=== PATIENT | male | born 1955 | race Caucasian/White ===

== ENCOUNTER 2017-02-14 19:35 | Emergency (ER) | payer MEDICARE ==
[~2017-02-14] VITALS: Ht 180.3 cm; Wt 76.7 kg
[~2017-02-14 19:35] MED LIST: ALPR0.5T6 PO; BUSP10TA PO; BUSP7.5T3 PO; BUTA1CAP30 PO; LOSA25TA5 PO; MORP-52 PO; MORP30TA81 PO; PRIM50TA PO
[2017-02-14 19:37] VITALS: BP 135/89
[2017-02-14] MEDS ORDERED: ONDANSETRON ODT 4 MG PO ONE (21:00)
[2017-02-14] MEDS ORDERED: HYDROmorphone 1 MG/ML, 1ML IM ONE (21:00)
[2017-02-14] MEDS ORDERED: HYDROmorphone 1 MG/ML, 1ML ONE (21:11)
[2017-02-14] MEDS ORDERED: ONDANSETRON ODT 4 MG ONE (21:11)
== END 2017-02-14 21:43 | disposition home or self-care (01) ==
LOC: ED 21:37
DX: G89.29 Other chronic pain (principal); M79.671 Pain in right foot; M79.672 Pain in left foot; M25.571 Pain in right ankle and joints of right foot; M25.572 Pain in left ankle and joints of left foot; G62.9 Polyneuropathy, unspecified; I10 Essential (primary) hypertension; I48.91 Unspecified atrial fibrillation; Z88.6 Allergy status to analgesic agent
CPT/HCPCS: 96372; 99283; J1170; Q0162

== ENCOUNTER 2017-04-02 16:11 | Emergency (ER) | payer MEDICARE ==
[~2017-04-02] VITALS: Ht 180.3 cm; Wt 78.0 kg
[2017-04-02] MEDS ORDERED: HYDROmorphone 1 MG/ML, 1ML ONE (16:42)
[2017-04-02] MEDS ORDERED: HYDROmorphone 1 MG/ML, 1ML IM ONE (17:00)
[2017-04-02] MEDS ORDERED: DIAZEPAM 5 MG TABLET PO ONE (17:00)
[2017-04-02] MEDS ORDERED: DIAZEPAM 5 MG TABLET ONE (17:24)
[2017-04-02 18:04] VITALS: BP 127/73
== END 2017-04-02 18:19 | disposition home or self-care (01) ==
LOC: ED 17:31
DX: S20.211A Contusion of right front wall of thorax, initial encounter (principal); W19.XXXA Unspecified fall, initial encounter; Y93.89 Activity, other specified; Y92.009 Unspecified place in unspecified non-institutional (private) residence as the place of occurrence of the external cause; Y99.9 Unspecified external cause status; I10 Essential (primary) hypertension; Z86.73 Personal history of transient ischemic attack (TIA), and cerebral infarction without residual deficits; Z90.49 Acquired absence of other specified parts of digestive tract; F17.200 Nicotine dependence, unspecified, uncomplicated
CPT/HCPCS: 71101; 96372; 99284; J1170

== ENCOUNTER 2017-04-06 03:15 | Emergency (ER) | payer MEDICARE ==
[~2017-04-06] VITALS: Ht 180.3 cm; Wt 80.6 kg
[2017-04-06] MEDS ORDERED: HYDROmorphone 1 MG/ML, 1ML IM ONE (04:00)
[2017-04-06] MEDS ORDERED: HYDROmorphone 1 MG/ML, 1ML ONE (04:06)
[2017-04-06 04:11] VITALS: BP 141/74
== END 2017-04-06 04:52 | disposition home or self-care (01) ==
LOC: ED 03:48
DX: S20.211A Contusion of right front wall of thorax, initial encounter (principal); G43.909 Migraine, unspecified, not intractable, without status migrainosus; I10 Essential (primary) hypertension; I48.91 Unspecified atrial fibrillation; G89.29 Other chronic pain; W19.XXXA Unspecified fall, initial encounter; Y93.89 Activity, other specified; Y92.89 Other specified places as the place of occurrence of the external cause; Y99.8 Other external cause status
CPT/HCPCS: 96372; 99283; J1170

== ENCOUNTER 2018-04-29 13:13 | Inpatient (IN) | payer MEDICARE ==
[~2018-04-29] VITALS: Ht 180.3 cm; Wt 91.2 kg
[~2018-04-29 13:13] MED LIST changes: +AMLO5TAB7 PO; +HYDR25TA6 PO; -LOSA25TA5 PO; +LOSA25TA6 PO
[2018-04-29 13:49] LABS: BASOPHILS # (AUTO) 0.02 x10^3/uL (0-0.1); BASOPHILS % (AUTO) 0 % (0-1); EOSINOPHILS # (AUTO) 0.16 x10^3/uL (0-0.4); EOSINOPHILS % (AUTO) 2 % (1-7); LYMPHOCYTES # (AUTO) 1.89 x10^3/uL (1-3.4); LYMPHOCYTES % (AUTO) 24 % (22-44); MD NO; MEAN CORPUSCULAR HEMOGLOBIN 32.1 pg (27.5-34.5); MEAN CORPUSCULAR HGB CONC 33.1 g/dL (33.2-36.2); MEAN CORPUSCULAR VOLUME 97.1 fL (81-97); MEAN PLATELET VOLUME 9.1 fL (7.4-10.4); MONOCYTES # (AUTO) 0.49 x10^3/uL (0.2-0.8); MONOCYTES % (AUTO) 6 % (2-9); NEUTROPHILS # (AUTO) 5.48 x10^3/uL (1.8-6.8); NEUTROPHILS % (AUTO) 68 % (42-75); PLATELET COUNT 212 x10^3/uL (130-400); RED BLOOD COUNT 4.19 x10^6/uL (4.38-5.82); RED CELL DISTRIBUTION WIDTH 15.9 % (9.4-14.8)
[2018-04-29 14:02] LABS: ALANINE AMINOTRANSFERASE 22 U/L (12-78); ALBUMIN 3.8 g/dL (3.4-5.0); ANION GAP 3 mmol/L (5-15); CALCIUM 8.3 mg/dL (8.5-10.1); CHLORIDE 112 mmol/L (98-107); CREATININE 0.94 mg/dL (0.7-1.3)
[2018-04-29 14:06] LABS: ALKALINE PHOSPHATASE 136 U/L (45-117); BILIRUBIN,TOTAL 0.3 mg/dL (0.2-1.0); TOTAL PROTEIN 6.8 g/dL (6.4-8.2); TROPONIN I < 0.015 ng/mL (0.000-0.045)
[2018-04-29] MEDS ORDERED: PROP40TA PO (14:29)
[2018-04-29 14:59] LABS: MICROSCOPIC NOT IND
[2018-04-29 15:04] LABS: CULTURE INDICATED? NO
[2018-04-29] MEDS ORDERED: ONDANSETRON 2MG/ML, 2ML IVPush ONE (16:00)
[2018-04-29] MEDS ORDERED: SODIUM CHLORIDE FLUSH 10ML SYR IVF ONE (16:00)
[2018-04-29] MEDS ORDERED: ONDANSETRON 2MG/ML, 2ML ONE (16:04)
[2018-04-29] MEDS ORDERED: HYDROmorphone 2 MG/ML, 1ML ONE ×2 (16:05→18:14)
[2018-04-29] MEDS: HYDROmorphone 2 MG/ML, 1ML IVPush PRN ×2 (16:13→18:21)
[2018-04-29] MEDS ORDERED: POTASSIUM CHLORIDE 20 MEQ TAB.ER.PRT PO ONE (17:30)
[2018-04-29] MEDS ORDERED: OMNIPAQUE 350 MG/ML, 100ML BOTTLE ONE (17:59)
[2018-04-29] MEDS ORDERED: POTASSIUM CHLORIDE 20 MEQ TAB.ER.PRT ONE (18:14)
[2018-04-29] MEDS ORDERED: POLYETHYLENE GLYCOL 17 GM PACKET PO PRN (18:30)
[2018-04-29] MEDS ORDERED: ACETAMINOPHEN 325 MG TABLET PO PRN (18:30)
[2018-04-29] MEDS ORDERED: ONDANSETRON ODT 4 MG PO PRN (18:30)
[2018-04-29] MEDS ORDERED: BISACODYL 10 MG SUPP PR PRN (18:30)
[2018-04-29 19:09] LABS: FOLATE LEVEL 19.1 ng/mL (3.1-17.5); FREE T4 (FREE THYROXINE) 0.97 ng/dL (0.76-1.46)
[2018-04-29] MEDS: SODIUM CHLORIDE FLUSH 10ML SYR IVF SCH (21:00)
[2018-04-29] MEDS: PRIMIDONE 50 MG TABLET PO SCH (21:43)
[2018-04-29] MEDS: POTASSIUM CHLORIDE 20 MEQ TAB.ER.PRT PO SCH (21:43)
[2018-04-29 21:47] VITALS: BP 137/79
[2018-04-29] MEDS: OXYcodone IR 5MG TABLET PO PRN (23:06)
[2018-04-29 23:46] LABS: AMPHETAMINE SCREEN, URINE Negative (Negative); BARBITURATE SCREEN, URINE Positive (Negative); BENZODIAZEPINE SCREEN, URINE Negative (Negative); CANNABINOID SCREEN, URINE Positive (Negative); COCAINE SCREEN, URINE Negative (Negative); METHADONE SCREEN, URINE Negative (Negative); OPIATE SCREEN, URINE Negative (Negative)
[2018-04-30] VITALS (7 sets, daily range): BP systolic 105–154; BP diastolic 64–96
[2018-04-30] MEDS: OXYcodone IR 5MG TABLET PO PRN ×4 (05:28→22:12)
[2018-04-30 05:38] LABS: BASOPHILS # (AUTO) 0.04 x10^3/uL (0-0.1); BASOPHILS % (AUTO) 1 % (0-1); EOSINOPHILS # (AUTO) 0.11 x10^3/uL (0-0.4); EOSINOPHILS % (AUTO) 2 % (1-7); LYMPHOCYTES # (AUTO) 1.92 x10^3/uL (1-3.4); LYMPHOCYTES % (AUTO) 35 % (22-44); MD NO; MEAN CORPUSCULAR HEMOGLOBIN 33.2 pg (27.5-34.5); MEAN CORPUSCULAR HGB CONC 34.4 g/dL (33.2-36.2); MEAN CORPUSCULAR VOLUME 96.5 fL (81-97); MEAN PLATELET VOLUME 9.4 fL (7.4-10.4); MONOCYTES # (AUTO) 0.42 x10^3/uL (0.2-0.8); MONOCYTES % (AUTO) 8 % (2-9); NEUTROPHILS # (AUTO) 2.96 x10^3/uL (1.8-6.8); NEUTROPHILS % (AUTO) 54 % (42-75); PLATELET COUNT 178 x10^3/uL (130-400); RED BLOOD COUNT 3.74 x10^6/uL (4.38-5.82); RED CELL DISTRIBUTION WIDTH 15.9 % (9.4-14.8)
[2018-04-30 05:48] LABS: ALANINE AMINOTRANSFERASE 20 U/L (12-78); ALBUMIN 3.1 g/dL (3.4-5.0); ANION GAP 6 mmol/L (5-15); CALCIUM 7.8 mg/dL (8.5-10.1); CHLORIDE 108 mmol/L (98-107); CREATININE 0.94 mg/dL (0.7-1.3)
[2018-04-30 05:50] LABS: ALKALINE PHOSPHATASE 126 U/L (45-117); BILIRUBIN,TOTAL 0.6 mg/dL (0.2-1.0); TOTAL PROTEIN 5.8 g/dL (6.4-8.2)
[2018-04-30] MEDS ORDERED: PROPRANOLOL 40 MG TABLET PO SCH (09:00)
[2018-04-30] MEDS ORDERED: PROPRANOLOL HCL 40 MG PO SCH (09:00)
[2018-04-30] MEDS: PROPRANOLOL 20 MG TABLET PO SCH ×2 (09:06→20:07)
[2018-04-30] MEDS: LIDODERM 5% PATCH TD SCH (09:30)
[2018-04-30] MEDS: DULOXETINE 20 MG CAPSULE.DR PO SCH ×2 (09:30→20:07)
[2018-04-30] MEDS: POTASSIUM CHLORIDE 20 MEQ TAB.ER.PRT PO SCH ×2 (09:30→16:05)
[2018-04-30] MEDS: SODIUM CHLORIDE FLUSH 10ML SYR IVF SCH ×2 (09:31→20:06)
[2018-04-30] MEDS: LOSARTAN 25MG TABLET PO SCH (09:31)
[2018-04-30] MEDS: HYDROCHLOROTHIAZIDE 25 MG TABLET PO SCH (09:31)
[2018-04-30] MEDS: SENNA/DOCUSATE TABLET PO SCH (09:32)
[2018-04-30] MEDS: PRIMIDONE 50 MG TABLET PO SCH (20:07)
[2018-05-01 00:55] VITALS: BP 160/92
[2018-05-01] MEDS: OXYcodone IR 5MG TABLET PO PRN (04:56)
[2018-05-01 05:16] LABS: BASOPHILS # (AUTO) 0.01 x10^3/uL (0-0.1); BASOPHILS % (AUTO) 0 % (0-1); EOSINOPHILS # (AUTO) 0.16 x10^3/uL (0-0.4); EOSINOPHILS % (AUTO) 3 % (1-7); LYMPHOCYTES # (AUTO) 1.61 x10^3/uL (1-3.4); LYMPHOCYTES % (AUTO) 26 % (22-44); MD NO; MEAN CORPUSCULAR HEMOGLOBIN 33.4 pg (27.5-34.5); MEAN CORPUSCULAR HGB CONC 33.9 g/dL (33.2-36.2); MEAN CORPUSCULAR VOLUME 98.3 fL (81-97); MEAN PLATELET VOLUME 9.4 fL (7.4-10.4); MONOCYTES # (AUTO) 0.51 x10^3/uL (0.2-0.8); MONOCYTES % (AUTO) 8 % (2-9); NEUTROPHILS # (AUTO) 3.91 x10^3/uL (1.8-6.8); NEUTROPHILS % (AUTO) 63 % (42-75); PLATELET COUNT 193 x10^3/uL (130-400); RED BLOOD COUNT 4.07 x10^6/uL (4.38-5.82); RED CELL DISTRIBUTION WIDTH 16.3 % (9.4-14.8)
[2018-05-01 05:25] LABS: ANION GAP 6 mmol/L (5-15); CALCIUM 8.4 mg/dL (8.5-10.1); CHLORIDE 107 mmol/L (98-107); CREATININE 0.83 mg/dL (0.7-1.3)
[2018-05-01 07:10] VITALS: BP_SYST 156; BP_SYST 165; BP_SYST 168; BP_DIAS 87; BP_DIAS 92; BP_DIAS 99
[2018-05-01] MEDS: LIDODERM 5% PATCH TD SCH (08:30)
[2018-05-01] MEDS: SENNA/DOCUSATE TABLET PO SCH (08:30)
[2018-05-01] MEDS: POTASSIUM CHLORIDE 20 MEQ TAB.ER.PRT PO SCH ×2 (08:30→17:28)
[2018-05-01] MEDS: HYDROCHLOROTHIAZIDE 25 MG TABLET PO SCH (08:31)
[2018-05-01] MEDS: HYDROmorphone 2MG TABLET PO PRN ×4 (08:31→22:40)
[2018-05-01] MEDS: SODIUM CHLORIDE FLUSH 10ML SYR IVF SCH ×2 (08:31→19:49)
[2018-05-01] MEDS: PROPRANOLOL 20 MG TABLET PO SCH ×2 (08:31→19:47)
[2018-05-01] MEDS: LOSARTAN 25MG TABLET PO SCH (08:31)
[2018-05-01] MEDS: DULOXETINE 20 MG CAPSULE.DR PO SCH ×2 (08:32→19:48)
[2018-05-01 12:34] VITALS: BP 138/82
[2018-05-01 18:53] VITALS: BP 125/79
[2018-05-01 18:55] VITALS: BP 143/87
[2018-05-01 18:56] VITALS: BP 145/79
[2018-05-01] MEDS: PRIMIDONE 50 MG TABLET PO SCH (19:48)
[2018-05-02 02:18] VITALS: BP 127/68
[2018-05-02] MEDS: HYDROmorphone 2MG TABLET PO PRN ×5 (02:40→21:08)
[2018-05-02 07:06] VITALS: BP 156/89
[2018-05-02] MEDS: SENNA/DOCUSATE TABLET PO SCH (09:00)
[2018-05-02] MEDS: PROPRANOLOL 20 MG TABLET PO SCH ×2 (09:48→21:08)
[2018-05-02] MEDS: DULOXETINE 20 MG CAPSULE.DR PO SCH ×2 (09:48→21:07)
[2018-05-02] MEDS: POTASSIUM CHLORIDE 20 MEQ TAB.ER.PRT PO SCH ×2 (09:48→15:48)
[2018-05-02] MEDS: LOSARTAN 25MG TABLET PO SCH (09:51)
[2018-05-02] MEDS: HYDROCHLOROTHIAZIDE 25 MG TABLET PO SCH (09:51)
[2018-05-02] MEDS: LIDODERM 5% PATCH TD SCH (09:51)
[2018-05-02] MEDS: SODIUM CHLORIDE FLUSH 10ML SYR IVF SCH ×2 (09:52→21:00)
[2018-05-02 12:59] VITALS: BP 122/80
[2018-05-02 18:39] VITALS: BP 114/72
[2018-05-02] MEDS: PRIMIDONE 50 MG TABLET PO SCH (21:08)
[2018-05-03] MEDS: HYDROmorphone 2MG TABLET PO PRN ×2 (01:26→05:51)
[2018-05-03 02:38] VITALS: BP 122/72
[2018-05-03 07:58] VITALS: BP 129/82
[2018-05-03] MEDS: PROPRANOLOL 20 MG TABLET PO SCH (08:47)
[2018-05-03] MEDS: LOSARTAN 25MG TABLET PO SCH (08:47)
[2018-05-03] MEDS: POTASSIUM CHLORIDE 20 MEQ TAB.ER.PRT PO SCH (08:47)
[2018-05-03] MEDS: DULOXETINE 30 MG CAPSULE.DR PO SCH ×2 (08:47→08:49)
[2018-05-03] MEDS: HYDROCHLOROTHIAZIDE 25 MG TABLET PO SCH (08:47)
[2018-05-03] MEDS: SODIUM CHLORIDE FLUSH 10ML SYR IVF SCH (08:48)
[2018-05-03] MEDS: SENNA/DOCUSATE TABLET PO SCH (08:49)
[2018-05-03] MEDS: LIDODERM 5% PATCH TD SCH (08:50)
[2018-05-03 13:00] VITALS: BP 108/70
[2018-05-03] MEDS ORDERED: LIDO700A20 TD (13:37)
[2018-05-03] MEDS ORDERED: DULO30CA2 PO (13:37)
[2018-05-03] MEDS ORDERED: PROP20TA PO (13:37)
== END 2018-05-03 15:43 | disposition home or self-care (01) | DRG 206 ==
LOC: ED 16:28 → EDIP 17:32 → 4EST 19:23 → DCLOUNGE 05-03 15:25
PROVIDERS: ADMIT Hospitalist; ATTEND Hospitalist
DX: S22.39XA Fracture of one rib, unspecified side, initial encounter for closed fracture (principal); G93.40 Encephalopathy, unspecified; D68.69 Other thrombophilia; F17.200 Nicotine dependence, unspecified, uncomplicated; G62.9 Polyneuropathy, unspecified; I10 Essential (primary) hypertension; I48.2 Chronic atrial fibrillation; S30.0XXA Contusion of lower back and pelvis, initial encounter; G43.909 Migraine, unspecified, not intractable, without status migrainosus; D53.9 Nutritional anemia, unspecified; W01.0XXA Fall on same level from slipping, tripping and stumbling without subsequent striking against object, initial encounter; E87.5 Hyperkalemia; J32.0 Chronic maxillary sinusitis; Z79.899 Other long term (current) drug therapy; Z87.11 Personal history of peptic ulcer disease; Z98.84 Bariatric surgery status; Y93.89 Activity, other specified; Z86.73 Personal history of transient ischemic attack (TIA), and cerebral infarction without residual deficits; Y92.89 Other specified places as the place of occurrence of the external cause; Z88.8 Allergy status to other drugs, medicaments and biological substances; Z90.49 Acquired absence of other specified parts of digestive tract; Z87.01 Personal history of pneumonia (recurrent)
CPT/HCPCS: 36415; 70450; 71045; 71046; 71111; 71260; 74177; 80048; 80053; 80307; 81003; 82607; 82746; 84439; 84443; 84484; 85025; 87806; 93005; 96374; 96375; 96376; 99285; G0378; J1170; J2405; Q9967; G0475

== ENCOUNTER 2018-10-09 12:19 | Emergency (ER) | payer MEDICARE ==
[~2018-10-09] VITALS: Ht 180.3 cm; Wt 91.3 kg
[~2018-10-09 12:19] MED LIST changes: +AMLO-150 PO; -AMLO5TAB7 PO; +DULO30CA2 PO; +LIDO700A20 TD; +LOSA25TA25 PO; -LOSA25TA6 PO; +PROP20TA PO; +PROP40TA PO
[2018-10-09 13:34] LABS: ALBUMIN 3.4 g/dL (3.4-5.0); ANION GAP 6 mmol/L (5-15); CALCIUM 8.5 mg/dL (8.5-10.1); CHLORIDE 110 mmol/L (98-107)
[2018-10-09 13:36] LABS: CREATININE 0.88 mg/dL (0.7-1.3)
[2018-10-09 13:51] LABS: MEAN CORPUSCULAR HGB CONC 33.4 g/dL (33.2-36.2); MEAN CORPUSCULAR VOLUME 98.9 fL (81-97); PLATELET COUNT 228 x10^3/uL (130-400); RED BLOOD COUNT 4.32 x10^6/uL (4.38-5.82); RED CELL DISTRIBUTION WIDTH 17.2 % (9.4-14.8)
--- NOTE | 2018-10-09 14:11 | NUR ---
PT TO ROOM AT THIS TIME.
[2018-10-09 14:17] LABS: BASOPHILS # (AUTO) 0.03 x10^3/uL (0-0.1); BASOPHILS % (AUTO) 1 % (0-1); EOSINOPHILS # (AUTO) 0.16 x10^3/uL (0-0.4); EOSINOPHILS % (AUTO) 3 % (1-7); LYMPHOCYTES # (AUTO) 1.84 x10^3/uL (1-3.4); LYMPHOCYTES % (AUTO) 30 % (22-44); MD SCAN; MONOCYTES # (AUTO) 0.49 x10^3/uL (0.2-0.8); MONOCYTES % (AUTO) 8 % (2-9); NEUTROPHILS # (AUTO) 3.62 x10^3/uL (1.8-6.8); NEUTROPHILS % (AUTO) 59 % (42-75)
--- NOTE | 2018-10-09 14:20 | NUR ---
PT TO ED FOR FRONTAL MIGRAINE X5 DAYS. PT RECEIVED TORADOL INJECTION 60MG ON TUESDAY WITH NO RELIEF. CONNECTED TO MONITORS. VSS. EDMD ASSESSMENT COMLPLETE. AWAITING ORDERS.
[2018-10-09] MEDS ORDERED: KETOROLAC 30 MG/1 ML ONE (14:22)
[2018-10-09] MEDS ORDERED: DIPHENHYDRAMINE 50 MG/ML, 1ML ONE (14:22)
[2018-10-09] MEDS ORDERED: METOCLOPRAMIDE 5 MG/ML, 2ML ONE ×2 (14:22→15:08)
[2018-10-09] MEDS ORDERED: DIPHENHYDRAMINE 50 MG/ML, 1ML IVPush ONE (14:30)
[2018-10-09] MEDS ORDERED: SODIUM CHLORIDE FLUSH 10ML SYR IVF ONE (14:30)
[2018-10-09] MEDS ORDERED: METOCLOPRAMIDE 5 MG/ML, 2ML IVPush ONE ×2 (14:30→15:30)
[2018-10-09] MEDS ORDERED: KETOROLAC 30 MG/1 ML IVPush ONE (14:30)
--- NOTE | 2018-10-09 14:36 | NUR ---
PT MEDICATED PER AUG. VSS. NO NEEDS REQUESTED. [facility]. AWAITING MED EFFECT.
--- NOTE | 2018-10-09 15:13 | NUR ---
PT STATES NO RELIEF FROM MEDICATIONS. EDMD UPDATED AND ORDERS RECEIVED. PT MEDICATED PER AUG. VSS. PT RESTING WITH LIGHTS DIMMED. CALL LIGHT WITHIN REACH. AWAITING MED EFFECT.
[2018-10-09 15:49] VITALS: BP 136/86
--- NOTE | 2018-10-09 15:52 | NUR ---
pt states pain 01/13. pt declines admit. edmd updated. vss. no needs expressed. call light within reach.
--- NOTE | 2018-10-09 16:17 | NUR ---
FIRST CONTACT WITH PT. Patient/Caregiver given discharge instructions and they have confirmed that they understand the instructions. Patient ambulatory with steady gait. PIC DISCONTINUED WITH TIP INTACT
== END 2018-10-09 16:20 | disposition home or self-care (01) ==
LOC: ED 16:14
DX: G43.011 Migraine without aura, intractable, with status migrainosus (principal); I10 Essential (primary) hypertension; I48.91 Unspecified atrial fibrillation; Z87.891 Personal history of nicotine dependence; Z86.73 Personal history of transient ischemic attack (TIA), and cerebral infarction without residual deficits; Z87.11 Personal history of peptic ulcer disease; Z87.01 Personal history of pneumonia (recurrent); Z90.49 Acquired absence of other specified parts of digestive tract
CPT/HCPCS: 36415; 70450; 80048; 82040; 85025; 96374; 96375; 96376; 99284; J1200; J1885; J2765

== ENCOUNTER 2019-06-27 22:42 | Emergency (ER) | payer MEDICARE, MEDICAID ==
--- NOTE | 2019-06-27 22:50 | NUR ---
PT TO LOBBY, WAIT TIME EXPLAINED.
--- NOTE | 2019-06-27 22:51 | NUR ---
PT SEEN BY PA IN TRIAGE, BLEEDING CONTROLLED.
[2019-06-27] MEDS ORDERED: DIPH,PERTUSS(ACELL),TET VAC/PF 0.5 ML IM-VACC ONE (23:00)
[2019-06-28] MEDS ORDERED: DIPH,PERTUSS(ACELL),TET VAC/PF 0.5 ML IM-VACC ONE (01:12)
[2019-06-28] MEDS ORDERED: LIDOCAINE-MPF 1%, 5ML ONE (01:37)
[2019-06-28] MEDS ORDERED: LIDOCAINE-MPF 1%, 5ML INFIL ONE (02:00)
[2019-06-28] MEDS ORDERED: ACETAMINOPHEN 325 MG TABLET ONE (02:10)
[2019-06-28 02:18] VITALS: BP 156/84
--- NOTE | 2019-06-28 02:18 | NUR ---
PT DECLINED TYLENOL "IT WONT DO SHIT". WROTE RX FOR MOTRIN. PT STATES HX OF BLEEDING ULCER. RX PLACED IN SHREDDER. PROPER HOME MEDICATION EDUCATION PROVIDED. PT STATES UNDERSTANDING. PT AWARE TO RETURN FOR STAPLE REMOVAL.
--- NOTE | 2019-06-28 02:24 | NUR ---
APAP WASTED IN ROOM THEY WERE OPENED AND THEN PT DECLINED.
[2019-06-28] MEDS ORDERED: ACETAMINOPHEN 325 MG TABLET PO ONE (02:30)
== END 2019-06-28 02:51 | disposition home or self-care (01) ==
LOC: ED 06-28 02:28
DX: S06.0X0A Concussion without loss of consciousness, initial encounter (principal); S01.01XA Laceration without foreign body of scalp, initial encounter; I10 Essential (primary) hypertension; G89.29 Other chronic pain; I48.91 Unspecified atrial fibrillation; F17.200 Nicotine dependence, unspecified, uncomplicated; Z86.73 Personal history of transient ischemic attack (TIA), and cerebral infarction without residual deficits; Z90.49 Acquired absence of other specified parts of digestive tract; W19.XXXA Unspecified fall, initial encounter; Y93.89 Activity, other specified; Y92.098 Other place in other non-institutional residence as the place of occurrence of the external cause; Y99.8 Other external cause status
CPT/HCPCS: 12031; 70450; 72125; 90471; 90715; 99284

== ENCOUNTER 2019-06-30 11:52 | Emergency (ER) | payer MEDICARE, MEDICAID ==
[~2019-06-30] VITALS: Ht 180.3 cm; Wt 99.6 kg
[2019-06-30] MEDS ORDERED: MECLIZINE CHEWABLE 25 MG TAB PO ONE (12:30)
[2019-06-30] MEDS ORDERED: HYDROcodone/APAP 5/325 TABLET PO ONE (12:30)
--- NOTE | 2019-06-30 12:30 | NUR ---
PT PRESENTING TO ER FOR EDWARDS, DIZZINESS AFTER A FALL WHERE PT HIT HEAD. NO LOC AND SCANS WERE COMPLETED THAT DAY. PT DX WITH CONCUSSION. NO N/V REPORTED, PERRLA. CONNECTED TO ALL MONITORING, VSS. CALL LIGHT WITHIN REACH. AT BEDSIDE
[2019-06-30] MEDS ORDERED: HYDROcodone/APAP 5/325 TABLET ONE (12:33)
[2019-06-30] MEDS ORDERED: MECLIZINE CHEWABLE 25 MG TAB ONE (12:33)
--- NOTE | 2019-06-30 12:37 | NUR ---
PT MEDICATED FOR PAIN PER AUG. LAB AT BEDSIDE FOR COLLECTION.
[2019-06-30 12:44] LABS: BASOPHILS # (AUTO) 0.04 x10^3/uL (0-0.1); BASOPHILS % (AUTO) 1 % (0-1); EOSINOPHILS # (AUTO) 0.13 x10^3/uL (0-0.4); EOSINOPHILS % (AUTO) 3 % (1-7); LYMPHOCYTES # (AUTO) 1.72 x10^3/uL (1-3.4); LYMPHOCYTES % (AUTO) 36 % (22-44); MD NO; MEAN CORPUSCULAR HEMOGLOBIN 32.1 pg (27.5-34.5); MEAN CORPUSCULAR VOLUME 97.3 fL (81-97); MEAN PLATELET VOLUME 7.6 fL (7.4-10.4); MONOCYTES # (AUTO) 0.44 x10^3/uL (0.2-0.8); MONOCYTES % (AUTO) 9 % (2-9); NEUTROPHILS # (AUTO) 2.43 x10^3/uL (1.8-6.8); NEUTROPHILS % (AUTO) 51 % (42-75); PLATELET COUNT 208 x10^3/uL (130-400); RED BLOOD COUNT 3.98 x10^6/uL (4.38-5.82); RED CELL DISTRIBUTION WIDTH 15.5 % (9.4-14.8)
[2019-06-30 12:56] LABS: ALBUMIN 3.1 g/dL (3.4-5.0); ANION GAP 5 mmol/L (5-15); CHLORIDE 112 mmol/L (98-107); CREATININE 0.79 mg/dL (0.7-1.3)
--- NOTE | 2019-06-30 13:06 | NUR ---
PT RESTING/SLEEPING IN BED, NADN, VSS. WILL CONTINUE TO MONITOR.
[2019-06-30 13:48] VITALS: BP 132/79
--- NOTE | 2019-06-30 13:48 | NUR ---
F/U CALL PLACED TO CT, TECH STATES PT IS NEXT AND SHOULD BE TAKEN FOR TESTING IN A FEW MINUTES. PT RESTING IN BED, STATES DIZZINESS HAS IMPROVED BUT PAIN IS STILL THERE. MD TO BE UPDATED.
--- NOTE | 2019-06-30 14:09 | NUR ---
PT BEING TAKEN TO CT NOW
== END 2019-06-30 14:52 | disposition home or self-care (01) ==
LOC: ED 13:40
DX: S06.0X9A Concussion with loss of consciousness of unspecified duration, initial encounter (principal); I48.91 Unspecified atrial fibrillation; I10 Essential (primary) hypertension; F17.200 Nicotine dependence, unspecified, uncomplicated; Z90.49 Acquired absence of other specified parts of digestive tract; Z86.73 Personal history of transient ischemic attack (TIA), and cerebral infarction without residual deficits; W18.39XA Other fall on same level, initial encounter; Y93.89 Activity, other specified; Y92.89 Other specified places as the place of occurrence of the external cause; Y99.8 Other external cause status
CPT/HCPCS: 36415; 70450; 80048; 82040; 85025; 99284

== ENCOUNTER 2019-11-26 09:14 | Observation (INO) | payer MEDICARE, MEDICAID ==
[~2019-11-26] VITALS: Ht 180.3 cm; Wt 95.7 kg
[~2019-11-26 09:14] MED LIST changes: -BUSP7.5T3 PO; +BUSP7.5T5 PO
[2019-11-26] MEDS ORDERED: SODIUM CHLORIDE FLUSH 10ML SYR IVF ONE (09:30)
[2019-11-26] MEDS ORDERED: ONDANSETRON 2MG/ML, 2ML IVPush ONE (09:30)
--- NOTE | 2019-11-26 09:35 | NUR ---
pt biba for mechanical glf, report received from ems. pt states he got out of bed to go to bathroom, slipped and fell, striking toilet. pt c/o 8/10 headache and generalized pain since fall. pt notes pain is worst in head/rt hip denies c spine pain/tenderness. pt notes dizziness/grogginess since fall. pt's speech is slow and slightly slurred, he states he noticed this change after fall. no focal neuro deficits noted, pupils equal, round and reactive at 3mm. face symmetrical. 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 JOSE Snyder notified that pt reports his slurred and slow speech is not baseline. pt on all montiors, NSR on monitor worker. EKG taken on arrival.
--- NOTE | 2019-11-26 09:38 | NUR ---
pt to ct with this RN
[2019-11-26 09:46] LABS: BASOPHILS # (AUTO) 0.04 x10^3/uL (0-0.1); BASOPHILS % (AUTO) 1 % (0-1); EOSINOPHILS # (AUTO) 0.17 x10^3/uL (0-0.4); EOSINOPHILS % (AUTO) 3 % (1-7); LYMPHOCYTES # (AUTO) 2.14 x10^3/uL (1-3.4); LYMPHOCYTES % (AUTO) 36 % (22-44); MD NO; MEAN CORPUSCULAR HEMOGLOBIN 31.7 pg (27.5-34.5); MEAN CORPUSCULAR HGB CONC 33.1 g/dL (33.2-36.2); MEAN CORPUSCULAR VOLUME 95.8 fL (81-97); MEAN PLATELET VOLUME 6.6 fL (7.4-10.4); MONOCYTES # (AUTO) 0.45 x10^3/uL (0.2-0.8); MONOCYTES % (AUTO) 8 % (2-9); NEUTROPHILS # (AUTO) 3.22 x10^3/uL (1.8-6.8); NEUTROPHILS % (AUTO) 53 % (42-75); PLATELET COUNT 228 x10^3/uL (130-400); RED BLOOD COUNT 4.24 x10^6/uL (4.38-5.82); RED CELL DISTRIBUTION WIDTH 15.4 % (9.4-14.8)
[2019-11-26] MEDS ORDERED: MORPHINE SULFATE 4 MG/ML, 1ML ONE (09:53)
--- NOTE | 2019-11-26 09:53 | NUR ---
pt back from CT
[2019-11-26 09:56] LABS: ALBUMIN 3.4 g/dL (3.4-5.0); ANION GAP 8 mmol/L (5-15); CALCIUM 8.2 mg/dL (8.5-10.1); CHLORIDE 107 mmol/L (98-107); CREATININE 0.99 mg/dL (0.7-1.3)
[2019-11-26 10:01] LABS: TROPONIN I < 0.015 ng/mL (0.000-0.045)
[2019-11-26] MEDS: MORPHINE SULFATE 4 MG/ML, 1ML IVPush PRN (10:16)
--- NOTE | 2019-11-26 10:19 | NUR ---
head ct resulted negative, pt medicated per emar, tolerated well. all monitors remain in place. pt remains a&o, resps even and unlabored, no change in speech. pt able to speak in full sentences, texting on phone at this time. awaiting lab and c spine results at this time.
--- NOTE | 2019-11-26 10:40 | NUR ---
PT ASSESSED BY CHRIS STERLING, PT'S SYMPTOLOGY DISCUSSED WITH MD STERLING. MD INFORMED PT NOTES HIS SPEECH IS NOT SLOW/SLURRED AT BASELINE, PT NOTED ONSET WAS AFTER FALL. PER , PT TO BE ADMITTED FOR COMPLETE WORKUP.
[2019-11-26] MEDS ORDERED: hctz PO (11:53)
[2019-11-26] MEDS ORDERED: aspirin PO (11:53)
[2019-11-26] MEDS ORDERED: losartan PO (11:53)
[2019-11-26] MEDS ORDERED: amlodipine PO (11:53)
--- NOTE | 2019-11-26 11:53 | NUR ---
report given to floor AUDREY Baez, pt taken to med tele at this time. pt is a&ox4, neuro intact, resps even and unlabored, nadn at this time. med rec completed to best of pt ability, pt unable to recall doseages of meds.
[2019-11-26 12:08] VITALS: BP 119/86
[2019-11-26] MEDS ORDERED: AMLO5TAB10 PO (12:10)
[2019-11-26] MEDS ORDERED: HYDR25TA6 PO (12:10)
[2019-11-26] MEDS ORDERED: LOSA100T14 PO (12:10)
[2019-11-26] MEDS ORDERED: ASPI-515 PO (12:11)
[2019-11-26 15:03] LABS: TROPONIN I < 0.015 ng/mL (0.000-0.045)
[2019-11-26] MEDS: NICOTINE 14MG/24 HR PATCH.TD24 TD SCH (15:15)
[2019-11-26] MEDS ORDERED: ONDANSETRON 2MG/ML, 2ML IVPush PRN (15:30)
[2019-11-26] MEDS ORDERED: METHOCARBAMOL 500 MG TABLET PO PRN (15:30)
[2019-11-26] MEDS ORDERED: ONDANSETRON ODT 4 MG PO PRN (15:30)
[2019-11-26] MEDS ORDERED: ACETAMINOPHEN 325 MG TABLET PO PRN (15:30)
[2019-11-26] MEDS ORDERED: OXYcodone IR 5MG TABLET PO PRN (15:30)
[2019-11-26] MEDS: ENOXAPARIN 40 MG/0.4 ML SQ SCH (15:56)
[2019-11-26] MEDS: SODIUM CHLORIDE 0.9% 1,000 ML IV SCH (15:56)
[2019-11-26 15:57] VITALS: BP 115/75
[2019-11-26] MEDS: morphine SULFATE 10 MG/ML, 1ML IVPush PRN ×2 (18:28→23:17)
[2019-11-26 19:00] VITALS: BP 108/71
[2019-11-27 00:02] VITALS: BP 105/65
[2019-11-27 00:05] VITALS: BP 106/74
[2019-11-27 00:09] VITALS: BP 104/73
[2019-11-27] MEDS: SODIUM CHLORIDE 0.9% 1,000 ML IV SCH (04:26)
[2019-11-27] MEDS: morphine SULFATE 10 MG/ML, 1ML IVPush PRN (05:13)
[2019-11-27 05:51] LABS: BASOPHILS # (AUTO) 0.02 x10^3/uL (0-0.1); BASOPHILS % (AUTO) 0 % (0-1); EOSINOPHILS # (AUTO) 0.11 x10^3/uL (0-0.4); EOSINOPHILS % (AUTO) 2 % (1-7); LYMPHOCYTES # (AUTO) 1.89 x10^3/uL (1-3.4); LYMPHOCYTES % (AUTO) 34 % (22-44); MD NO; MEAN CORPUSCULAR HEMOGLOBIN 31.6 pg (27.5-34.5); MEAN CORPUSCULAR HGB CONC 33.2 g/dL (33.2-36.2); MEAN CORPUSCULAR VOLUME 95.4 fL (81-97); MEAN PLATELET VOLUME 7.4 fL (7.4-10.4); MONOCYTES # (AUTO) 0.37 x10^3/uL (0.2-0.8); MONOCYTES % (AUTO) 7 % (2-9); NEUTROPHILS # (AUTO) 3.25 x10^3/uL (1.8-6.8); NEUTROPHILS % (AUTO) 58 % (42-75); PLATELET COUNT 185 x10^3/uL (130-400); RED BLOOD COUNT 4.02 x10^6/uL (4.38-5.82); RED CELL DISTRIBUTION WIDTH 15.5 % (9.4-14.8)
[2019-11-27 06:00] LABS: ANION GAP 6 mmol/L (5-15); CHLORIDE 107 mmol/L (98-107)
[2019-11-27 06:04] LABS: ALANINE AMINOTRANSFERASE 34 U/L (12-78); ALKALINE PHOSPHATASE 119 U/L (45-117); BILIRUBIN,TOTAL 0.3 mg/dL (0.2-1.0); CHOL/HDL RATIO 2.8; CHOLESTEROL, TOTAL 139 mg/dL (140-239); CREATININE 0.81 mg/dL (0.7-1.3); HDL CHOL % 36 % (26-37); HDL CHOLESTEROL (DIRECT) 50 mg/dL (40-60); LDL CHOLESTEROL,CALCULATED 66 mg/dL (54-169); LDL/HDL RATIO 1.3 (0.5-3.0); TOTAL PROTEIN 6.1 g/dL (6.4-8.2); TRIGLYCERIDES 113 mg/dL (50-200); VLDL CHOLESTEROL 23 mg/dL (0-25)
[2019-11-27 07:21] VITALS: BP 116/70
[2019-11-27] MEDS: MORPHINE SULFATE 4 MG/ML, 1ML IVPush PRN (12:27)
[2019-11-27 13:15] VITALS: BP 123/80
[2019-11-27] MEDS: NICOTINE 14MG/24 HR PATCH.TD24 TD SCH (15:30)
[2019-11-27] MEDS: ENOXAPARIN 40 MG/0.4 ML SQ SCH (15:30)
== END 2019-11-27 17:58 | disposition home or self-care (01) ==
LOC: ED 10:12 → EDIP 11:30 → INTOOBSV 11:30 → 4WST 11:57
PROVIDERS: ADMIT Internal Medicine; ATTEND Internal Medicine
DX: R55 Syncope and collapse (principal); R51 Headache; I48.0 Paroxysmal atrial fibrillation; R41.0 Disorientation, unspecified; D68.69 Other thrombophilia; I10 Essential (primary) hypertension; G62.9 Polyneuropathy, unspecified; F17.210 Nicotine dependence, cigarettes, uncomplicated; Z86.73 Personal history of transient ischemic attack (TIA), and cerebral infarction without residual deficits; Z79.899 Other long term (current) drug therapy; Z79.82 Long term (current) use of aspirin
CPT/HCPCS: 36415; 70450; 72125; 80048; 80053; 80061; 82040; 83735; 84443; 84484; 85025; 93005; 93306; 93880; 96361; 96372; 96374; 96376; 97161; 97165; 99285; G0378; J1650; J2270; J7030

== ENCOUNTER 2020-03-01 18:36 | Emergency (ER) | payer MEDICARE, MEDICAID ==
[~2020-03-01] VITALS: Ht 180.3 cm; Wt 90.0 kg
[~2020-03-01 18:36] MED LIST changes: +AMLO5TAB10 PO; +ASPI-515 PO; +LOSA100T14 PO; +amlodipine PO; +aspirin PO; +hctz PO; +losartan PO
--- NOTE | 2020-03-01 19:25 | NUR ---
assumed care of pt. pt here c/o generalized weakess for the last few days. pt reports that he has a hx of migraines and that he is having a EDWARDS but it is different than his regular migriane. pt reports that he is weak and dizzy, denies nausea. having some sensitivity to light and sound. pt is speaking slowly, but is appropriate and answering all questions. JOHNS. no apparent resp. distress. no family at bedside. 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 no family at bedside
[2020-03-01] MEDS ORDERED: SODIUM CHLORIDE FLUSH 10ML SYR IVF ONE ×2 (19:30→20:30)
[2020-03-01] MEDS ORDERED: HYDR25TA6 PO (19:35)
--- NOTE | 2020-03-01 19:40 | NUR ---
pt to CT scan
[2020-03-01 19:50] LABS: BASOPHILS # (AUTO) 0.03 x10^3/uL (0-0.1); BASOPHILS % (AUTO) 1 % (0-1); EOSINOPHILS # (AUTO) 0.21 x10^3/uL (0-0.4); EOSINOPHILS % (AUTO) 4 % (1-7); LYMPHOCYTES # (AUTO) 2.01 x10^3/uL (1-3.4); LYMPHOCYTES % (AUTO) 40 % (22-44); MD NO; MEAN CORPUSCULAR HEMOGLOBIN 32.6 pg (27.5-34.5); MEAN CORPUSCULAR HGB CONC 33.6 g/dL (33.2-36.2); MEAN PLATELET VOLUME 7.2 fL (7.4-10.4); MONOCYTES # (AUTO) 0.48 x10^3/uL (0.2-0.8); MONOCYTES % (AUTO) 10 % (2-9); NEUTROPHILS # (AUTO) 2.36 x10^3/uL (1.8-6.8); NEUTROPHILS % (AUTO) 46 % (42-75); PLATELET COUNT 188 x10^3/uL (130-400); RED BLOOD COUNT 3.96 x10^6/uL (4.38-5.82); RED CELL DISTRIBUTION WIDTH 14.8 % (9.4-14.8)
[2020-03-01 20:01] LABS: ALANINE AMINOTRANSFERASE 18 U/L (12-78); ALBUMIN 3.2 g/dL (3.4-5.0); ANION GAP 7 mmol/L (5-15); CALCIUM 8.3 mg/dL (8.5-10.1); CHLORIDE 104 mmol/L (98-107); CREATININE 0.83 mg/dL (0.7-1.3)
[2020-03-01] MEDS ORDERED: BUTA1CAP30 PO (20:01)
[2020-03-01 20:05] LABS: ALKALINE PHOSPHATASE 124 U/L (45-117); BILIRUBIN,TOTAL 0.4 mg/dL (0.2-1.0); TOTAL PROTEIN 6.4 g/dL (6.4-8.2); TROPONIN I 0.045 ng/mL (0.000-0.045)
--- NOTE | 2020-03-01 20:06 | NUR ---
pt returned from CT scan. lighhts dimmed and positioning for comfort. pt requesting food and fluids, but advised of NPO status. warm blankets given for comfort
[2020-03-01] MEDS ORDERED: DIPHENHYDRAMINE 50 MG/ML, 1ML IVPush ONE (20:30)
[2020-03-01] MEDS ORDERED: PROCHLORPERAZINE 5 MG/ML, 2ML IVPush ONE (20:30)
[2020-03-01] MEDS ORDERED: KETOROLAC 30 MG/1 ML IVPush ONE (20:30)
[2020-03-01] MEDS ORDERED: KETOROLAC 30 MG/1 ML ONE (20:54)
[2020-03-01] MEDS ORDERED: DIPHENHYDRAMINE 50 MG/ML, 1ML ONE (20:54)
[2020-03-01] MEDS ORDERED: PROCHLORPERAZINE 5 MG/ML, 2ML ONE (20:54)
[2020-03-01 21:07] VITALS: BP 107/77
--- NOTE | 2020-03-01 21:22 | NUR ---
chart up for MD recheck
--- NOTE | 2020-03-01 22:00 | NUR ---
this pt was D/C by another RN
== END 2020-03-01 22:47 | disposition home or self-care (01) ==
LOC: ED 19:10
DX: R42 Dizziness and giddiness (principal); R53.1 Weakness; R11.0 Nausea; I48.91 Unspecified atrial fibrillation; I10 Essential (primary) hypertension; G43.909 Migraine, unspecified, not intractable, without status migrainosus; Z86.73 Personal history of transient ischemic attack (TIA), and cerebral infarction without residual deficits; Z90.49 Acquired absence of other specified parts of digestive tract; Z87.11 Personal history of peptic ulcer disease; F17.210 Nicotine dependence, cigarettes, uncomplicated
CPT/HCPCS: 36415; 70450; 71045; 80053; 84484; 85025; 93005; 96374; 96375; 99285; J0780; J1200; J1885

== ENCOUNTER 2020-04-09 07:46 | Emergency (ER) | payer MEDICARE, MEDICAID ==
[~2020-04-09] VITALS: Ht 180.3 cm; Wt 94.3 kg
[~2020-04-09 07:46] MED LIST changes: +AMLO-210 PO; -AMLO5TAB10 PO
--- NOTE | 2020-04-09 07:57 | NUR ---
INITIAL PT CONTACT. PT PRESENTS TO ED C/O BACK PAIN X1 DAY. PT DENIES AND FALLS OR TRAUMA. NO BOWEL OR BLADDER INCONTINENCE. PT DENIES NUMBNESS OR TINGLING DOWN LEGS. TENDERNESS UPON PALPATION TO MID THORACIC BACK, PARASPINAL MUSCLES, WORSE WITH MOVEMENT AND WALKING. PT AMBULATED WITH STEADY GAIT TO BATHROOM WITH THIS RN. PT SITTING UPRIGHT ON GURNEY, NAD, VSS. CALL LIGHT AND PERSONAL BELONGINGS IN REACH. PT DENIES ANY NEEDS AT THIS TIME.
--- NOTE | 2020-04-09 07:58 | NUR ---
EKG DONE IN TRIAGE
[2020-04-09 09:00] LABS: ALANINE AMINOTRANSFERASE 34 U/L (12-78); ALBUMIN 3.1 g/dL (3.4-5.0); ANION GAP 7 mmol/L (5-15); BASOPHILS % (AUTO) 1 % (0-1); CALCIUM 8.2 mg/dL (8.5-10.1); CHLORIDE 110 mmol/L (98-107); EOSINOPHILS % (AUTO) 1 % (1-7); LYMPHOCYTES % (AUTO) 22 % (22-44); MEAN CORPUSCULAR HEMOGLOBIN 31.7 pg (27.5-34.5); MEAN CORPUSCULAR HGB CONC 32.9 g/dL (33.2-36.2); MEAN PLATELET VOLUME 8.1 fL (7.4-10.4); MONOCYTES % (AUTO) 7 % (2-9); NEUTROPHILS % (AUTO) 68 % (42-75); PLATELET COUNT 287 x10^3/uL (130-400); RED BLOOD COUNT 4.25 x10^6/uL (4.38-5.82); RED CELL DISTRIBUTION WIDTH 14.5 % (9.4-14.8)
--- NOTE | 2020-04-09 09:00 | NUR ---
HAND SHAKER: JANET Radford 1 @ [phone]
[2020-04-09 09:03] LABS: ALKALINE PHOSPHATASE 214 U/L (45-117); BILIRUBIN,TOTAL 0.3 mg/dL (0.2-1.0); CREATININE 0.94 mg/dL (0.7-1.3); TOTAL PROTEIN 6.7 g/dL (6.4-8.2)
[2020-04-09 09:10] LABS: MD NO
--- NOTE | 2020-04-09 09:10 | NUR ---
JAVASCRIPT UI DEVELOPER: PT TO ROOM VIA WHEELCHAIR FROM LOBBY.
[2020-04-09 09:40] LABS: MICROSCOPIC NOT IND
[2020-04-09] MEDS ORDERED: HYDROcodone/APAP 5/325 TABLET ONE (09:48)
[2020-04-09] MEDS ORDERED: DIAZEPAM 5 MG TABLET ONE (09:49)
--- NOTE | 2020-04-09 09:50 | NUR ---
PT TO IMAGING
[2020-04-09] MEDS ORDERED: HYDROcodone/APAP 5/325 TABLET PO ONE (10:00)
[2020-04-09] MEDS ORDERED: DIAZEPAM 5 MG TABLET PO ONE (10:00)
--- NOTE | 2020-04-09 10:02 | NUR ---
PT RETURNED FROM IMAGING. PT SITTING UPRIGHT ON GURNEY, NAD, VSS. CALL LIGHT AND PERSONAL BELONGINGS IN REACH. PT DENIES ANY NEEDS AT THIS TIME. MEDICATED PER EMAR.
[2020-04-09] MEDS ORDERED: SODIUM CHLORIDE FLUSH 10ML SYR IVF ONE (11:00)
--- NOTE | 2020-04-09 11:00 | NUR ---
PT SITTING UPRIGHT ON GURNEY, NAD, VSS. CALL LIGHT AND PERSONAL BELONGINGS IN REACH. PT DENIES ANY NEEDS AT THIS TIME. CONTINOUS PULSE OX IN PLACE.
--- NOTE | 2020-04-09 11:21 | NUR ---
PT TO CT
[2020-04-09] MEDS ORDERED: MORPHINE SULFATE 4 MG/ML, 1ML IVPush ONE (11:30)
[2020-04-09] MEDS ORDERED: OMNIPAQUE 350 MG/ML, 75ML BOTTLE ONE (11:33)
[2020-04-09] MEDS ORDERED: MORPHINE SULFATE 4 MG/ML, 1ML ONE (11:40)
--- NOTE | 2020-04-09 12:00 | NUR ---
PT SITTING UPRIGHT ON GURNEY, NAD, VSS. CALL LIGHT AND PERSONAL BELONGINGS IN REACH. PT REPORTS DECREASED PAIN FOLLOWING MEDICATION. PT DENIES ANY NEEDS AT THIS TIME. CONTINOUS PULSE OX IN PLACE.
--- NOTE | 2020-04-09 12:09 | NUR ---
Patient given discharge instructions and they have confirmed that they understand the instructions. Patient ambulatory with steady gait.
[2020-04-09 12:10] VITALS: BP 105/52
== END 2020-04-09 12:25 | disposition home or self-care (01) ==
LOC: ED 09:36
DX: S29.012A Strain of muscle and tendon of back wall of thorax, initial encounter (principal); I49.1 Atrial premature depolarization; R06.02 Shortness of breath; R10.9 Unspecified abdominal pain; I10 Essential (primary) hypertension; Z86.73 Personal history of transient ischemic attack (TIA), and cerebral infarction without residual deficits; Z90.49 Acquired absence of other specified parts of digestive tract; X58.XXXA Exposure to other specified factors, initial encounter; Y93.89 Activity, other specified; Y92.89 Other specified places as the place of occurrence of the external cause; Y99.8 Other external cause status
CPT/HCPCS: 36415; 71045; 71275; 72072; 80053; 81003; 85025; 85379; 93005; 96374; 99285; J2270; Q9967

== ENCOUNTER 2020-04-17 06:21 | Emergency (ER) | payer MEDICARE, MEDICAID ==
[~2020-04-17] VITALS: Ht 180.3 cm; Wt 96.2 kg
--- NOTE | 2020-04-17 06:41 | NUR ---
PT WALKED TO ROOM 4 WITH CANE, STATES HAS NOT FOLLOWED UP WITH PCP RE BACK PAIN YET. SAYS FINISHED RX'S HE GOT LAST WEEK FROM HERE AND SAYS PAIN IS STILL "REALLY BAD". NO NEW INJURY, NO LOSS OF BOWEL OR BLADDER CONTROL. DENIES RADIATING PAIN OR NUMBNESS OR TINGLING. CHANGED INTO GOWN ON OWN. AWAITING ERP EVAL. CALL BURKS IN REACH, AIDET PROVIDED.
--- NOTE | 2020-04-17 06:53 | NUR ---
REPORT TO AUDREY SULLIVAN
[2020-04-17] MEDS ORDERED: KETOROLAC 30 MG/1 ML IM ONE (07:00)
[2020-04-17] MEDS ORDERED: DIAZEPAM 5 MG/ML, 2ML IVPush ONE (07:00)
[2020-04-17] MEDS ORDERED: DIAZEPAM 5 MG TABLET PO ONE (07:00)
[2020-04-17] MEDS ORDERED: KETOROLAC 30 MG/1 ML ONE (07:07)
[2020-04-17] MEDS ORDERED: DIAZEPAM 5 MG TABLET ONE (07:07)
[2020-04-17 07:14] LABS: BASOPHILS % (AUTO) 1 % (0-1); EOSINOPHILS % (AUTO) 1 % (1-7); LYMPHOCYTES % (AUTO) 31 % (22-44); MEAN CORPUSCULAR HEMOGLOBIN 32.3 pg (27.5-34.5); MEAN CORPUSCULAR HGB CONC 33.3 g/dL (33.2-36.2); MONOCYTES % (AUTO) 7 % (2-9); NEUTROPHILS % (AUTO) 60 % (42-75); PLATELET COUNT 328 x10^3/uL (130-400); RED BLOOD COUNT 3.77 x10^6/uL (4.38-5.82)
--- NOTE | 2020-04-17 07:15 | NUR ---
report recived. pt in bed, admin pain meds, vss, no distress,
[2020-04-17 07:19] LABS: MD NO
[2020-04-17 07:26] LABS: ALANINE AMINOTRANSFERASE 18 U/L (12-78); ALBUMIN 3.3 g/dL (3.4-5.0); ANION GAP 5 mmol/L (5-15); CALCIUM 8.5 mg/dL (8.5-10.1); CHLORIDE 111 mmol/L (98-107)
[2020-04-17 07:29] LABS: ALKALINE PHOSPHATASE 140 U/L (45-117); BILIRUBIN,TOTAL 0.2 mg/dL (0.2-1.0); TOTAL PROTEIN 6.5 g/dL (6.4-8.2)
[2020-04-17 08:10] LABS: MICROSCOPIC NOT IND
[2020-04-17 09:43] VITALS: BP 123/68
== END 2020-04-17 09:48 | disposition home or self-care (01) ==
LOC: ED 07:40
DX: S29.012A Strain of muscle and tendon of back wall of thorax, initial encounter (principal); I10 Essential (primary) hypertension; F17.210 Nicotine dependence, cigarettes, uncomplicated; I48.91 Unspecified atrial fibrillation; Z90.49 Acquired absence of other specified parts of digestive tract; Z86.73 Personal history of transient ischemic attack (TIA), and cerebral infarction without residual deficits; X58.XXXA Exposure to other specified factors, initial encounter; Y93.89 Activity, other specified; Y92.89 Other specified places as the place of occurrence of the external cause; Y99.8 Other external cause status
CPT/HCPCS: 36415; 80053; 81003; 85025; 96372; 99283; J1885